=== PATIENT | male | born 2000 | race Two or more races ===

== ENCOUNTER 2021-03-07 11:09 | Outpatient (REF) | payer MEDICAID, SELFPAY ==
[2021-03-07 12:56] LABS: COVID-19 Test Negative (Negative)
== END 2021-03-07 11:10 | disposition home or self-care (01) ==
LOC: HO.LAB 11:09
PROVIDERS: Visit Provider Internal Medicine
DX: Z20.822 Contact with and (suspected) exposure to COVID-19 (principal)
CPT/HCPCS: 36415; 87635; C9803